=== PATIENT | male | born 1980 | race Hispanic/Latino ===

== ENCOUNTER 2020-10-01 11:09 | Emergency (ER) | payer OTHER ==
--- NOTE | 2020-10-01 11:48 | RAD ---
Exam:Right hand fourth digit 3 views HISTORY: For fell on fourth digit. Pain. COMPARISON: None FINDINGS: Soft tissue swelling. No fracture, cortical irregularity or periosteal reaction. IMPRESSION: Soft tissue swelling, without evidence of fracture.
[2020-10-01] MEDS ORDERED: HYDROcodone/Acetaminophen 5/325 mg Tablet ONE (11:50)
[2020-10-01] MEDS ORDERED: Ibuprofen 800 MG TAB ONE (11:50)
== END 2020-10-01 12:00 | disposition home or self-care (01) ==
LOC: MADERS 11:09
DX: S60.041A Contusion of right ring finger without damage to nail, initial encounter (principal); Z87.891 Personal history of nicotine dependence; W22.8XXA Striking against or struck by other objects, initial encounter